=== PATIENT | male | born 1960 | race African-American/Black ===

== ENCOUNTER 2020-12-05 12:14 | Emergency (ER) | payer MEDICARE, MEDICAID ==
[~2020-12-05] VITALS: Ht 182.9 cm; Wt 91.0 kg
[2020-12-05] MEDS ORDERED: IBUPROFEN 800MG TABLET PO ONE (13:15)
[2020-12-05] MEDS ORDERED: IBUP-2029 MT (15:18)
[2020-12-05 16:53] VITALS: BP 139/78
== END 2020-12-05 16:55 | disposition home or self-care (01) ==
LOC: ER 12:18
DX: M54.2 Cervicalgia (principal)
CPT/HCPCS: 82962; 93005; 99284

== ENCOUNTER 2024-06-27 08:08 | Emergency (ER) | payer MEDICARE, MEDICAID ==
[~2024-06-27] VITALS: Ht 188 cm; Wt 90.0 kg
[~2024-06-27 08:08] MED LIST: IBUP-2029 MT
[2024-06-27 08:22] VITALS: O2SAT 96
[2024-06-27] MEDS: PREDNISONE 20MG TABLET PO ONE (08:47)
[2024-06-27 08:50] VITALS: PULSE 58; RESP 20
[2024-06-27] MEDS: IPRATROPIUM/ALBUTEROL 0.5-3(2.5)MG/3ML NEB HHN ONE (08:51)
[2024-06-27] MEDS ORDERED: ALBU18HF2 IH (09:04)
[2024-06-27] MEDS ORDERED: GUAI237L83 MT (09:04)
[2024-06-27] MEDS ORDERED: AZIT250T12 MT (09:04)
[2024-06-27] MEDS ORDERED: P50 MT (09:04)
[2024-06-27 09:15] VITALS: BP 137/60; PULSE 58; RESP 20; TEMP 36.9; O2SAT 96
== END 2024-06-27 09:15 | disposition home or self-care (01) ==
LOC: ER 08:08
DX: J40 Bronchitis, not specified as acute or chronic (principal); R05.9 Cough, unspecified; E11.9 Type 2 diabetes mellitus without complications; F20.9 Schizophrenia, unspecified; F17.210 Nicotine dependence, cigarettes, uncomplicated; Z79.899 Other long term (current) drug therapy
CPT/HCPCS: 99283; 71045; 94640; J7512; 94070

== ENCOUNTER 2024-09-27 08:36 | Emergency (ER) | payer OTHER, MEDICAID ==
[~2024-09-27] VITALS: Ht 180.3 cm; Wt 85.0 kg
[~2024-09-27 08:36] MED LIST changes: +ALBU18HF2 IH; +AZIT250T12 MT; +GUAI237L83 MT; +P50 MT
[2024-09-27 08:41] VITALS: TEMP 37; O2SAT 99
[2024-09-27 09:18] LABS: BASOPHILS % 0.8 % (0.0-2.0); DIFFERENTIAL COMMENT 0; HEMATOCRIT. 40.9 % (42.0-52.0); HEMOGLOBIN. 12.7 g/dL (14.0-18.0); LYMPHOCYTES % 26.4 % (20.0-50.0); MEAN CORPUSCULAR HEMOGLOBIN 22.5 pg (28.0-32.0); MEAN CORPUSCULAR HGB CONC 31.2 g/dL (31.0-37.0); MEAN CORPUSCULAR VOLUME 72.2 fL (80.0-94.0); MEAN PLATELET VOLUME 7.9 fl (7.4-10.4); MONOCYTES % 9.6 % (2.0-8.0); NEUTROPHILS % 60.2 % (40.0-76.0); PLATELET 280 x1000/uL (130-400); RED BLOOD CELL COUNT 5.66 mill/uL (4.7-6.1); RED CELL DISTRIBUTION WIDTH 14.9 % (11.6-14.6); WHITE BLOOD COUNT 5.7 x1000/uL (4.5-11.0)
[2024-09-27 09:28] LABS: CHLORIDE 107 mEq/L (98-107); POTASSIUM 4.1 mEq/L (3.5-5.1); SODIUM 139 mEq/L (136-145)
[2024-09-27 09:29] LABS: CALCIUM 9.5 mg/dL (8.7-10.4); CARBON DIOXIDE 25 mEq/L (21-32)
[2024-09-27 09:34] LABS: CREATININE 1.2 mg/dL (0.6-1.3); GLUCOSE 239 mg/dL (70-105); UREA NITROGEN BLOOD 10 mg/dL (9-23)
[2024-09-27 09:36] LABS: ALANINE AMINOTRANSFERASE 24 IU/L (10-49); ALBUMIN 4.4 g/dL (3.2-4.8); ASPARTATE AMINOTRANSFERASE 16 IU/L (<34); BILIRUBIN TOTAL 0.8 mg/dL (0.1-1.0); PROTEIN TOTAL 6.9 g/dL (6.0-8.3)
[2024-09-27 11:28] VITALS: BP 122/75; PULSE 66; RESP 14; O2SAT 99
[2024-09-27] MEDS ORDERED: IOHEXOL-300 100 ML BOTTLE ONE (15:51)
== END 2024-09-27 11:31 | disposition home or self-care (01) ==
LOC: ER 08:36
DX: D17.79 Benign lipomatous neoplasm of other sites (principal); E11.9 Type 2 diabetes mellitus without complications; F20.9 Schizophrenia, unspecified; M19.012 Primary osteoarthritis, left shoulder; Z79.899 Other long term (current) drug therapy
CPT/HCPCS: 99285; 73201; 80053; 85025; 36415; Q9967

== ENCOUNTER 2025-02-03 08:01 | Emergency (ER) | payer MEDICAID ==
[~2025-02-03] VITALS: Ht 188 cm; Wt 98.0 kg
[~2025-02-03 08:01] MED LIST changes: +ASPI-1160 PO; +ATOR20TA65 PO; +IBUP-1455 MT; -IBUP-2029 MT
[2025-02-03 08:15] VITALS: TEMP 36.8
[2025-02-03] MEDS: PREDNISONE 20MG TABLET PO ONE (08:39)
[2025-02-03 08:47] VITALS: PULSE 56; RESP 16; O2SAT 95
[2025-02-03] MEDS: IPRATROPIUM/ALBUTEROL 0.5-3(2.5)MG/3ML NEB HHN ONE (08:47)
[2025-02-03 08:53] LABS: BASOPHILS % 0.6 % (0.0-2.0); EOSINOPHILS % 2.8 % (0.0-5.0); HEMATOCRIT. 37.1 % (42.0-52.0); HEMOGLOBIN. 11.6 g/dL (14.0-18.0); LYMPHOCYTES % 25.4 % (20.0-50.0); MEAN PLATELET VOLUME 7.6 fl (7.4-10.4); MONOCYTES % 9.9 % (2.0-8.0); NEUTROPHILS % 61.3 % (40.0-76.0); PLATELET 247 x1000/uL (130-400); RED BLOOD CELL COUNT 5.14 mill/uL (4.7-6.1); RED CELL DISTRIBUTION WIDTH 14.8 % (11.6-14.6)
[2025-02-03 08:59] LABS: INR 0.9
[2025-02-03 09:06] LABS: CREATININE 0.9 mg/dL (0.6-1.3); UREA NITROGEN BLOOD 5 mg/dL (9-23)
[2025-02-03 09:08] LABS: TROPONIN I HIGH SENSITIVITY 5 ng/L (3.0-53)
[2025-02-03] MEDS ORDERED: FERR1TAB91 MT (09:14)
[2025-02-03 09:22] VITALS: BP 129/55; PULSE 60; RESP 16; O2SAT 100
== END 2025-02-03 09:23 | disposition home or self-care (01) ==
LOC: ER 08:05
DX: J40 Bronchitis, not specified as acute or chronic (principal); D64.9 Anemia, unspecified; E11.9 Type 2 diabetes mellitus without complications; F20.9 Schizophrenia, unspecified; I10 Essential (primary) hypertension; F17.200 Nicotine dependence, unspecified, uncomplicated; Z79.82 Long term (current) use of aspirin; Z79.52 Long term (current) use of systemic steroids; Z79.899 Other long term (current) drug therapy
CPT/HCPCS: 99285; 71045; 80048; 83880; 85025; 85610; 84484; 36415; 94640; 93005; J7512; 94070